=== PATIENT | female | born 1975 | race Caucasian/White ===

== ENCOUNTER 2017-04-06 12:32 | Emergency (ER) | payer SELFPAY ==
[~2017-04-06] VITALS: Ht 162.6 cm; Wt 56.7 kg
[2017-04-06 12:49] VITALS: BP 131/78
[2017-04-06] MEDS ORDERED: DEXAMETHASONE SOD PHOSPHATE 10 MG/ML VIAL ONE (13:24)
[2017-04-06] MEDS ORDERED: IBUPROFEN 600 MG TABLET PO ONE ×2 (13:24→13:30)
[2017-04-06] MEDS ORDERED: DEXAMETHASONE SOD PHOSPHATE 4 MG/ML VIAL IM ONE (13:30)
== END 2017-04-06 13:44 | disposition home or self-care (01) ==
LOC: ER 12:34
DX: M54.12 Radiculopathy, cervical region (principal); Z88.0 Allergy status to penicillin
CPT/HCPCS: A4606; J1100; Z7610

== ENCOUNTER 2023-08-02 10:46 | Emergency (ER) | payer MEDICAID, OTHER ==
[~2023-08-02] VITALS: Ht 162.6 cm; Wt 64.0 kg
[2023-08-02] MEDS ORDERED: IBUP-1955 PO (12:05)
[2023-08-02 12:17] VITALS: BP 123/84; TEMP 98; O2SAT 100
== END 2023-08-02 12:18 | disposition home or self-care (01) ==
LOC: ER 10:46
DX: S49.81XA Other specified injuries of right shoulder and upper arm, initial encounter (principal); Z60.2 Problems related to living alone; Z88.0 Allergy status to penicillin; W01.0XXA Fall on same level from slipping, tripping and stumbling without subsequent striking against object, initial encounter; Y93.89 Activity, other specified; Y92.89 Other specified places as the place of occurrence of the external cause; Y99.8 Other external cause status
CPT/HCPCS: 73030-TC; 73060-TC